=== PATIENT | male | born 1955 | race Caucasian/White ===

== ENCOUNTER 2022-02-10 14:09 | Emergency (ER) | payer MEDICARE, OTHER, SELFPAY ==
--- NOTE | 2022-02-10 14:11 | ED.LOWEXIN ---
HPI - Extremity Injury (Lower) General Chief Complaint: Extremity Injury, Lower Stated Complaint: Left Hip Pain Time Seen by Provider: 02/10/22 14:11 Source: patient and RN notes reviewed History of Present Illness HPI Narrative: patient is a 67-year-old male who presents to urgent care with complaints of left hip pain into the buttocks radiating down to the foot at times. Patient states it started after he moved a refrigerator last Thursday. States that seems to be better once he has been on his feet for the day. Patient states he has been unable to sleep at night due to the radiating pain. Patient denies any known falls or recent injuries. States he has been using heat and his prescription hydrocodone in conjunction with ibuprofen. No other acute complaints. No acute distress noted. Patient aware of the plan of care. Some parts of this dictation were generated by voice recognition software and may contain typographical and/or grammatical inaccuracies. Related Data Home Medications Medication Instructions Recorded Confirmed albuterol sulfate 90 mcg/actuation 90 mcg inhalation DIRECTED 02/10/22 02/10/22 aerosol inhaler hydrochlorothiazide 12.5 mg tablet 12.5 mg DIRECTED 02/10/22 02/10/22 losartan 50 mg tablet 50 mg DIRECTED 02/10/22 02/10/22 oxycodone-acetaminophen 10 mg-325 1 tablet DIRECTED 02/10/22 02/10/22 mg tablet Allergies Allergy/AdvReac Type Severity Reaction Status Date / Time No Known Drug Allergies Allergy Unknown Verified 06/01/18 18:56 Review of Systems Review of Systems: CONSTITUTIONAL: Denies fever, chills, or sweats. EYES: Denies visual changes, redness, or discharge. ENT: Denies rhinorrhea, congestion, sore throat, or otalgia. CARDIOVASCULAR: Denies chest pain, palpitations, or edema. RESPIRATORY: Denies cough or dyspnea. GASTROINTESTINAL: Denies abdominal pain, nausea, vomiting, or diarrhea. GENITOURINARY: Denies dysuria or hematuria. SKIN: Denies rash or itching. MUSCULOSKELETAL: Reports of left-sided buttock/hip discomfort radiating down to the left foot NEUROLOGIC: Denies headache, numbness, or weakness. All other systems reviewed are negative, except as documented in HPI. PMFSH Comments At the time of my signature, I reviewed and agree with the nursing past medical, surgical, social, and family history. There is no relevant family history pertinent to the patient complaint. Exam Narrative: GENERAL: This is a well-nourished, well-developed patient, in no apparent distress. HEAD: normocephalic, atraumatic. EYES: PERRL. Sclera clear/white. Vision is grossly intact. EARS: External ears normal NOSE: External nose normal with no obvious nasal discharge, nares without redness, no rhinorrhea. THROAT: Mucous membranes moist NECK: Neck supple SKIN: warm, intact with no suspicious lesions or rash, good texture and turgor. NEURO: awake, alert, and oriented to person, place and time. There were no obvious focal neurologic abnormalities. EXTREMITIES: No clubbing, cyanosis, or edema. BACK: mild left piriformis tenderness. Positive left SLE Course Course Level of Care: Express Care Visit Vital Signs Vital signs: Vital Signs Temperature 98.5 F 02/10/22 14:16 Pulse Rate 77 02/10/22 14:16 Respiratory Rate 18 02/10/22 14:16 Blood Pressure 137/68 02/10/22 14:16 Pulse Oximetry 99 02/10/22 14:16 Oxygen Delivery Room Air 02/10/22 14:16 Temperature 98.5 F 02/10/22 14:16 Pulse Rate 77 02/10/22 14:16 Respiratory Rate 18 02/10/22 14:16 Blood Pressure 137/68 02/10/22 14:16 Pulse Oximetry 99 02/10/22 14:16 Oxygen Delivery Room Air 02/10/22 14:16 reviewed MDM - Extremity Injury (Lower) MDM Narrative Medical decision making narrative: He is aware that his symptoms are classic signs of sciatic nerve pain. Advised patient to refrain from any heavy lifting/ pushing / pulling until pain has subsided. Complete the steroid regimen as pr
[2022-02-10 14:16] VITALS: BP 137/68; PULSE 77; RESP 18; TEMP 36.9; O2SAT 99
== END 2022-02-10 14:37 | disposition home or self-care (01) ==
PROVIDERS: Emergency Provider Nurse Practitioner Family; PCP Family Medicine
DX: M54.32 Sciatica, left side (principal); I10 Essential (primary) hypertension
CPT/HCPCS: 99203; G0463

== ENCOUNTER 2023-06-23 14:13 | Emergency (ER) | payer MEDICARE, OTHER, SELFPAY ==
[2023-06-23 14:23] VITALS: BP 172/90; PULSE 75; RESP 20; TEMP 36.4; O2SAT 100
--- NOTE | 2023-06-23 15:20 | ED.BACK ---
HPI - Back Pain/Injury General Chief Complaint: Back Pain/Injury Stated Complaint: lower left back pain Time Seen by Provider: 06/23/23 15:14 Source: patient, RN notes reviewed and old records reviewed Mode of arrival: ambulatory Limitations: no limitations History of Present Illness HPI Narrative: 68-year-old male to Express Care with complaint of lower left back pain x2 days. Patient endorses shoveling dirt 3 days ago and believes he injured his back while shoveling. Patient has attempted to treat at home with Tylenol and heating pad with some relief. Patient denies urinary changes, bowel changes, lower extremity numbness, pain or weakness. Related Data Home Medications Medication Instructions Recorded Confirmed albuterol sulfate 90 mcg/actuation 90 mcg inhalation DIRECTED 02/10/22 06/23/23 aerosol inhaler hydrochlorothiazide 12.5 mg tablet 12.5 mg DIRECTED 02/10/22 06/23/23 losartan 50 mg tablet 50 mg DIRECTED 02/10/22 06/23/23 oxycodone-acetaminophen 10 mg-325 1 tablet DIRECTED 02/10/22 06/23/23 mg tablet cyclobenzaprine 5 mg tablet 10 mg PO TID PRN muscle spasm 06/23/23 06/23/23 fluticasone furoate 200 inh inhalation DAILY 06/23/23 mcg/actuation blister powder for inhalation (Arnuity Ellipta) Allergies Allergy/AdvReac Type Severity Reaction Status Date / Time No Known Drug Allergies Allergy Unknown Unknown Verified 06/23/23 14:40 Review of Systems Review of Systems: All systems reviewed & are unremarkable except as noted in HPI and below Constitutional: Constitutional: Reports no additional constitutional complaints Eyes: Eyes: Reports no additional eye complaints ENT: Reports system reviewed and no additional complaints, except as documented Cardiovascular: Cardiovascular: Reports no additional cardiovascular complaints, Denies chest pain and Denies dyspnea Respiratory: Respiratory: Reports no additional respiratory complaints, Denies cough and Denies dyspnea Gastrointestinal: Gastrointestinal: Denies change in bowel habits Genitourinary: Genitourinary: Reports no additional male genitourinary complaints Musculoskeletal: Musculoskeletal: Reports as per HPI, Reports back pain ( lower left), Denies muscle weakness, Denies numbness, Denies radiating pain into limb and Denies tingling Neurologic: Reports system reviewed and no additional complaints, except as documented Psychiatric: Psychiatric: Reports no additional psychiatric complaints PMFSH Comments At the time of my signature, I reviewed and agree with the nursing past medical, surgical, social, and family history. There is no relevant family history pertinent to the patient complaint. Exam Const: General: cooperative, healthy appearing, comfortable, no acute distress, alert and well nourished Nutritional Appearance: well nourished Orientation/consciousness: patient oriented x3 Limitations: no limitations HENMT: Head: normal to inspection Ears: external ears normal Face/Nose/Sinus: Normal external nose present, Normal nares present, normal facial exam, No erythema and No edema Face and sinus: normal facial exam, no erythema and no edema Mouth: Yes Normal oral and palatal mucosa present Eyes: General: appearance normal, both eyes and all related structures Neck: Neck: normal visual inspection, full ROM and no meningeal signs Lymphatic: no lymphadenopathy noted and no lymphedema noted Chest: Chest palpation & inspection: normal inspection of the chest Resp: Effort & Inspection: normal respiratory effort and able to speak in complete sentences Auscultation: clear to auscultation bilaterally Cardio: Jugular venous distension: no JVD Rate: regular rate Rhythm: regular rhythm Back/Spine/Pelvis: Cervical Spine: cervical ROM normal Thoracic/Lumbar Spine: thoraco-lumbar ROM normal, thoraco-lumbar ROM limited and lumbar spinal tenderness ( with palpation; worse on left) Skin: General skin exam: normal color, no rashe
== END 2023-06-23 15:32 | disposition home or self-care (01) ==
PROVIDERS: Emergency Provider Nurse Practitioner Family; PCP Family Medicine
DX: S39.012A Strain of muscle, fascia and tendon of lower back, initial encounter (principal); X50.3XXA Overexertion from repetitive movements, initial encounter; Y93.H1 Activity, digging, shoveling and raking; I10 Essential (primary) hypertension
CPT/HCPCS: 99213; G0463

== ENCOUNTER 2024-03-16 19:14 | Emergency (ER) | payer MEDICARE, OTHER, SELFPAY ==
[2024-03-16 19:20] VITALS: BP 168/82; PULSE 93; RESP 18; TEMP 37.5; O2SAT 100
--- NOTE | 2024-03-16 19:30 | ED.URI ---
HPI - URI/Sore Throat General Chief Complaint: Upper Respiratory Infection Stated Complaint: cough Time Seen by Provider: 03/16/24 20:03 Source: patient and RN notes reviewed Mode of arrival: ambulatory Limitations: no limitations History of Present Illness HPI Narrative: 69-year-old male with history of chronic cough syndrome presents with concern for worsening cough, productive cough, general malaise for about 4 days. Reports the cough is harsh. Reports his chest hurts when he coughs. He reports some runny nose. MD elicited complaint: cough Related Data Home Medications ?Medication ?Instructions ?Recorded ?Confirmed ?Last Taken ?Type hydrochlorothiazide 12.5 mg tablet 12.5 mg DIRECTED 02/10/22 06/23/23 Unknown History losartan 50 mg tablet 50 mg DIRECTED 02/10/22 06/23/23 Unknown History oxycodone-acetaminophen 10 mg-325 1 tablet DIRECTED 02/10/22 06/23/23 Unknown History mg tablet fluticasone furoate 200 inh inhalation DAILY 06/23/23 Unknown History mcg/actuation blister powder for inhalation (Arnuity Ellipta) simvastatin 10 mg tablet mg 03/16/24 Unknown History Allergies Allergy/AdvReac Type Severity Reaction Status Date / Time No Known Drug Allergies Allergy Unknown Unknown Verified 03/16/24 19:41 Review of Systems Review of Systems: CONSTITUTIONAL: Reports malaise. Denies chills, sweats, or fever. EYES: Denies visual changes, redness, or discharge. ENT: Reports rhinorrhea. Denies congestion, sinus pain, otalgia and sore throat. CARDIOVASCULAR: Denies chest pain, palpitations, or edema. RESPIRATORY: Reports cough. Denies dyspnea. GASTROINTESTINAL: Denies abdominal pain, nausea, vomiting, diarrhea SKIN: Denies rash or itching. MUSCULOSKELETAL: Denies myalgia. NEUROLOGIC: Denies headache. All systems reviewed & are unremarkable except as noted in HPI and below PMFSH Comments At time of signature, agree with nursing past medical, surgical, social and family history. There is no relevant family history pertinent to the presenting complaint Exam Narrative: GENERAL: Well-appearing, well-nourished, and in no acute distress. HEAD: Normocephalic EYES: PERRLA, conjunctivae clear ENT: Nares clear. Mucous membranes moist. TM pearly avila with sharp light reflex bilaterally; no tragal tenderness. Oropharynx not erythematous without lesions. Tonsils not enlarged and without exudate, no drooling, no hoarseness, no trismus, uvula midline. NECK: Supple. No lymphadenopathy CHEST: Clear to auscultation, breath sounds diminished in the left lower lobe. No wheezing, rhonchi, rales, or stridor. No respiratory distress, speaks in full sentences. HEART: Regular rate and rhythm. No murmur heard. SKIN: Warm, dry, no rash. NEURO: Alert and oriented x3. PSYCH: Normal mood and affect Course Course Emergency Course: Patient is aware of diagnosis, understands and agrees to treatment plan. Anticipatory guidance given. Patient agrees to follow-up as directed and is aware of reasons to seek care at the emergency department. Portions of this record may have been created with voice recognition software Level of Care: Express Care Visit Vital Signs Vital signs: Vital Signs Temperature 99.5 F 03/16/24 19:20 Pulse Rate 93 03/16/24 19:20 Respiratory Rate 18 03/16/24 19:20 Blood Pressure 168/82 H 03/16/24 19:20 Pulse Oximetry 100 03/16/24 19:20 Oxygen Delivery Room Air 03/16/24 19:20 Temperature 99.5 F 03/16/24 19:20 Pulse Rate 93 03/16/24 19:20 Respiratory Rate 18 03/16/24 19:20 Blood Pressure 168/82 H 03/16/24 19:20 Pulse Oximetry 100 03/16/24 19:20 Oxygen Delivery Room Air 03/16/24 19:20 Reviewed. MDM - URI/Sore Throat MDM Narrative Medical decision making narrative: Differential diagnosis considered: [place]una[place] virus, strep pharyngitis, allergic rhinitis, upper respiratory tract infection, sinusitis, rhinosinusitis, nasopharyngitis. viral pharyngitis, otitis media, otitis externa, pneumonia, bronchitis, viral cough syndrome, viral syndrome, and influenza. Exam findings show no acute concerns or changes; patient is non-toxic appearing and is in no distress. Patient is appropriate for outpatient treatment and follow-up. Lab Data Attestation: I reviewed the patient's lab results. Critical Care Time Critical Care Time Critical Care Time: No Discharge Plan Discharge Clinical Impression: Lower respiratory tract infection Patient Disposition: Home, Self-Care Condition: Stable Instructions: Antibiotic Form, Acute Cough (ED) Additional Instructions: Take medication as prescribed Recommend antihistamine such as Benadryl at night time and Zyrtec or Janice during the day Also, recommend symptomatic treatment includes: rest, fluids, and increase humidity of the air at home. Recommend Acetaminophen as directed on the bottle to reduce fever, pain, headache. Avoid smoking/second-hand smoke. Please schedule a follow-up visit with your personal physician for further evaluation and treatment within 3-5days. Including recheck and discussion of your blood pressure. If your symptoms persist, change or worsen significantly before you can contact your personal physician then please, without delay, go to the emergency department for further evaluation. Patient Language: Kiswahili Prescriptions: New azithromycin [Zithromax Z-Shakeel] 250 mg tablet See Rx Instructions .ROUTE .COMPLEX Qty: 6 0RF Rx Instructions: take 500 mg today (day 1), then 250 mg for 4 days (days 2-5) methylprednisolone [Medrol (Shakeel)] 4 mg tablets,dose pack See Rx Instructions .ROUTE .COMPLEX Qty: 21 0RF Rx Instructions: orally per package directions No Action losartan 50 mg tablet 50 mg DIRECTED hydrochlorothiazide 12.5 mg tablet 12.5 mg DIRECTED oxycodone-acetaminophen 10-325 mg tablet 1 tablet DIRECTED ibuprofen 800 mg tablet 800 mg PO TID PRN (Reason: pain) Qty: 60 0RF Arnuity Ellipta 200 mcg/actuation blister with device INHALATION DAILY simvastatin 10 mg tablet Follow-up/Referrals: Harms,Woody Kaba M.D. [Primary Care Provider] - Time of Disposition: 20:08
== END 2024-03-16 20:13 | disposition home or self-care (01) ==
PROVIDERS: Emergency Provider Nurse Practitioner; PCP Family Medicine
DX: J22 Unspecified acute lower respiratory infection (principal); I10 Essential (primary) hypertension; E78.00 Pure hypercholesterolemia, unspecified
CPT/HCPCS: 99213; G0463